=== PATIENT | female | born 1980 | race Caucasian/White ===

== ENCOUNTER 2017-02-08 14:51 | Emergency (ER) | payer OTHER ==
--- NOTE | 2017-02-08 15:29 | ERNOTE ---
Lower Extremity HPI - Narrative Date of Service: 02/08/17 - General Lower Extremities Pain: leg: right Time Seen by Provider: 02/08/17 15:07 Source: patient, RN notes reviewed Exam Limitations: no limitations - Immun/Allergies/Home Medications Immunizations: IMMUNIZATION HX Immunizations Up to Date Yes History of Influenza Vaccine No Hx Pneumococcal Vaccination No Allergies/Adverse Reactions: Allergies Allergy/AdvReac Type Severity Reaction Status Date / Time hydrocodone Allergy Hives Verified 02/08/17 15:05 Sulfa (Sulfonamide Allergy Hives Verified 07/03/16 07:57 Antibiotics) Home Medications: HOME MEDICATIONS Oseltamivir Phosphate [Tamiflu] 75 mg PO BID #10 cap 07/03/16 [Last Taken Unknown] Cyclobenzaprine HCl [Flexeril] 10 mg PO TID PRN #20 tab 02/08/17 [Last Taken Unknown] oxyCODONE HCL/ACETAMINOPHEN [Oxycodone-Acetaminophen 5-325] 1 - 2 each PO Q6H PRN #20 tablet 02/08/17 [Last Taken Unknown] valACYclovir HCL [Valtrex] 500 mg PO DAILY 02/08/17 [Last Taken Unknown] - History of Present Illness Narrative: 36 y/o female brought to the ED by private vehicle for an injury to her right calf. She attempted to catch a heavy section of wall that was falling when she felt a pop and experienced immediate pain in her right calf. Her foot was flexed at the ankle and her knee was locked at the time. She is unable to bear weight on the extremity. She reports swelling and tightness in her calf. Occurred: just prior to arrival Location of Incident: home Associated Symptoms: Reports: unable to bear weight, popping sensation Other Injuries: Reports: none Subsequent Symptoms: Denies: sensory loss, numbness, motor loss Prior Treament: Denies: recently seen Review of Systems - Review of Systems Constitutional: Absent: recent illness, fever, chills EYE: Present: no symptoms reported ENT: Present: no symptoms reported Respiratory: Absent: shortness of breath, cough Cardiology: Absent: chest pain, palpitations, syncope Gastrointestinal/Abdominal: Present: no symptoms reported Genitourinary: Absent: other - possible Musculoskeletal: Present: muscle pain, muscle stiffness. Absent: joint pain, joint swelling Skin: Present: lumps. Absent: rash, lesions, change in color Neurological: Absent: weakness, numbness, tingling Endocrine: Present: no symptoms reported Hematologic/Lymphatic: Absent: easy bruising, easy bleeding Psych: Present: no symptoms reported - Patient's Past Medical History Patient History - Medical: Hypothyroidism Patient History - Cardiac/Respiratory: Hypertension Patient History - Cancer: No Hx of Cancer Patient History - Surgical Procedures: , Tubal Ligation Patient History - Other: None - Social History Living Situations: home Abuse History: No History of abuse Psych History: No pertinent hx Smoking Status: Current every day smoker Have you smoked in the past 12 months: Yes Do you dip or chew tobacco: No Alcohol Use: rarely Drug Use: none - Immunizations Immunizations Up to Date: Yes Hx Pneumococcal Vaccination: No History of Influenza Vaccine: No Physical Exam - Physical Exam General Appearance: Present: wd/wn, alert, mild distress Respiratory: Present: no respiratory distress, no accessory muscle use Cardiovascular/Chest: Present: normal peripheral pulses Peripheral Pulses: N=norm/S=strong/W=weak/B=bound/A=absent: Dorsalis-pedis (R): Strong, Dorsalis-pedis (L): Strong Extremity Exam: Present: decreased range of motion - Right knee and ankle, calf tenderness - Right - tense and painful to touch. Absent: bony tenderness, joint redness, joint swelling Neurological Exam: Present: alert, oriented, normal mood/affect, no motor/ sensory deficits Skin Exam: Present: normal color, warm/dry ED Progress - Vital Signs Patient's Vital Signs:: I have reviewed the patient's vital signs. Vital Signs: Vital Signs 02/08/17 14:56 Temperature 37.4 C Pulse Rate 119 H Respiratory 20 Rate Blood Pressure 150/114 O2 Sat by Pulse 98 Oximetry - X-Ray X-Ray #1 X-Ray: tibula/fibula Interpretation: Reviewed by me X-ray Comments: Tibia/Fibula 2 View RT * No definable fracture lucency or cortical discontinuity. Joint spaces are grossly unremarkable, as visualized. Lateral image suggests somewhat attenuated appearance of the Achilles tendon shadow. Consider possible tendinopathy to include acute tear. IMPRESSION: 1. No definable acute fracture. 2. Soft tissue finding regarding the Achilles tendon as discussed above. Correlate clinically for Achilles tendinopathy to include potential acute tear. Electronically signed by Viviana Brice M.D.. Viviana Brice MD - Progress/Reassessment Chief Complaint: Lower Extremity Pain/ Injury Progress:: Improved Progress Note-Subjective: 02/08/17 16:27 Continues to have severe pain after Morphine 4mg and Phenergan 25 mg IM. Consulted with FAITH Jane regarding further imaging - concluded that it would not change management director currently and patient would likely be unable to tolerate US d/t pain. Additional meds ordered. Follow up appointment scheduled in [facility] for 02/10. Departure Clinical Impression: Gastrocnemius strain Qualifiers: Encounter type: initial encounter Laterality: right Qualified Code(s): S86.111A - Strain of other muscle(s) and tendon(s) of posterior muscle group at lower leg level, right leg, initial encounter - Departure Disposition: Home Follow Up Needed Condition: Stable Instructions: Muscle Strain, [id number] Additional Instructions: Wear GISELA wrap for support Ice and elevate Limited weight bearing as tolerated Follow up with orthopedics as scheduled Referrals: Telly Fairbanks PA [[facility]] - 02/10/17 9:00 am Prescriptions: Cyclobenzaprine HCl [Flexeril] 10 mg PO TID PRN #20 tab PRN Reason: MUSCLE SPASMS oxyCODONE HCL/ACETAMINOPHEN [Oxycodone-Acetaminophen 5-325] 1 - 2 each PO Q6H PRN #20 tablet PRN Reason: Pain
[2017-02-08] MEDS ORDERED: PROMETHAZINE HCL 25 MG/ML AMPUL IM ONE (15:36)
[2017-02-08] MEDS ORDERED: MORPHINE SULFATE 4 MG/ML SYRG IM ONE ×2 (15:36→16:17)
[2017-02-08] MEDS ORDERED: PROMETHAZINE HCL 25 MG/ML AMPUL ONE (15:37)
[2017-02-08] MEDS ORDERED: MORPHINE SULFATE 4 MG/ML SYRG ONE ×2 (15:37→16:30)
[2017-02-08] MEDS ORDERED: ORPHENADRINE CITRATE 30 MG/ML VIAL IM ONE (16:28)
[2017-02-08] MEDS ORDERED: ORPHENADRINE CITRATE 30 MG/ML VIAL ONE (16:30)
[2017-02-08 16:35] VITALS: BP 147/105
[2017-02-08] MEDS ORDERED: oxyCODONE HCL/ACETAMINOPHEN 1 TAB TABLET PO ONE (17:15)
[2017-02-08] MEDS ORDERED: oxyCODONE HCL/ACETAMINOPHEN 1 TAB TABLET ONE (17:29)
== END 2017-02-08 18:10 | disposition home or self-care (01) ==
LOC: ER 14:51
DX: S86.111A Strain of other muscle(s) and tendon(s) of posterior muscle group at lower leg level, right leg, initial encounter (principal); X58.XXXA Exposure to other specified factors, initial encounter; Y93.9 Activity, unspecified; Y92.009 Unspecified place in unspecified non-institutional (private) residence as the place of occurrence of the external cause; F17.200 Nicotine dependence, unspecified, uncomplicated